=== PATIENT | female | born 1975 | race Caucasian/White ===

== ENCOUNTER 2020-07-07 20:51 | Emergency (ER) | payer MEDICARE, MEDICAID, SELFPAY ==
--- NOTE | ~2020-07-07 | XR_ITS ---
EXAMINATION: XR HAND WRIST RT CLINICAL INFORMATION: Fall on wrist, pain COMPARISON: None. TECHNIQUE: AP, lateral, oblique, and scaphoid views of the right hand and wrist FINDINGS: Diffuse soft tissue swelling. 4 mm negative ulnar variance. No fracture or dislocation seen. Otherwise normal mineralization and alignment. XR/XR hand wrist RT IMPRESSION: No acute osseous abnormality.
[2020-07-07 22:12] VITALS: BP 159/85; PULSE 89; RESP 17; TEMP 37; O2SAT 96; BMI 41.5
--- NOTE | 2020-07-07 23:05 | ED.EXTPRO ---
HPI - Extremity Problem General Chief complaint: Extremity Injury, Upper Stated complaint: WORK INJ Time Seen by Provider: 07/07/20 23:05 Source: patient Mode of arrival: ambulatory Limitations: no limitations History of Present Illness HPI Narrative: 44-year-old female with cough out of her work slipped outside was on the black eye is to protect her head use her right hand/wrist to ease up the fall, patient is complaining of right wrist pain. No head injury, no C-spine injury. Related Data Allergies Allergy/AdvReac Type Severity Reaction Status Date / Time aspirin Allergy Hives Verified 07/07/20 22:11 NSAIDS (Non-Steroidal Allergy Hives Verified 07/07/20 22:11 Anti-Inflamma hydrocodone AdvReac Nausea and Verified 07/07/20 22:11 Vomiting morphine AdvReac Nausea and Verified 07/07/20 22:11 Vomiting oxycodone AdvReac Nausea and Verified 07/07/20 22:11 Vomiting Review of Systems Review of Systems: All other systems are reviewed and are negative Constitutional: Reports as per HPI and Reports no additional constitutional complaints Eyes: Reports as per HPI and Reports no additional eye complaints Reports system reviewed and no additional complaints, except as documented Cardiovascular: Reports as per HPI and Reports no additional cardiovascular complaints Respiratory: Reports as per HPI and Reports no additional respiratory complaints Gastrointestinal: Reports as per HPI and Reports no additional gastrointestinal complaints Genitourinary: Reports no additional female genitourinary complaints Musculoskeletal: Reports no additional musculoskeletal complaints Skin/Breast: Reports system reviewed and no additional complaints, except as docu Psychiatric: Reports no additional psychiatric complaints Endocrine: Reports no additional endocrine complaints Hematologic/Lymphatic: Reports no additional hematologic/lymphatic complaints Allergic/Immunologic: Reports no additional allergic/immunologic complaints Reports system reviewed and no additional complaints, except as documented and Reports Abnormal speech present [facility] Past Medical History Medical History HTN (hypertension) Social History Social History Advance Directives: No Advance Directives Information Provided: Yes Physical Exam Vital Signs: Vital Signs: Last Vital Signs Temp 98.6 F 07/07/20 22:12 Pulse 89 07/07/20 22:12 Resp 17 07/07/20 22:12 BP 159/85 H 07/07/20 22:12 Pulse Ox 96 07/07/20 22:12 Body Mass Index 41.5 Vital signs have been reviewed as normal and appeared to be correct. Blood pressure in the high range. Heart rate normal. Respiration rate normal. Temperature normal. Oxygen saturation normal. Appearance: Alert. Oriented X3. No acute distress. Head: Normal external exam. Normocephalic. Atraumatic. No Martinez signs noted. No raccoon eyes noted Eyes: PERRLA. EOMI. Conjunctiva and sclera normal. Eyelids normal. ENT: TM's Normal. Pharynx normal. Uvula midline. Moist mucous membranes. No trismus noted. No drooling noted. No muffled voice noted. Neck: Normal inspection. Neck supple. FROM. No adenopathy. Thyroid Normal. No meningeal signs. No neck mass noted. CVS: Normal heart rate and rhythm. Heart sound normal. No murmurs noted. Pulses normal throughout. Respiratory: No respiratory distress. Painless inspiration. Breath sounds normal. No wheezes/rales/rhonchi noted. Chest nontender. No accessory muscle usage noted or decreased air movement noted. Abdomen: Soft and nontender. Bowel sounds normal in all 4 quadrants. No distention noted. No organomegaly noted. No visible injury noted. Back: No CVA tenderness. Full range of motion noted. Skin: Skin warm and dry. Normal skin color. Normal skin turgor. No rashes/lesions/lacerations noted. Extremities: Patient is right handed, tenderness over the snuffbox, no deformity, intact radial pulse, cap refill less than 2 seconds, sensation is intact to light touch in right hand. Neuro: Oriented X 3. No motor deficit. No sensory deficit. Reflexes normal. Course Course Course Narrative: 44 years old female who fell complain of right wrist pain clinical exam is consistent with scaphoid fracture, not suggested by the x-ray could be too early. Will apply thumb spica cast, NSAIDs, follow up with Ortho. MDM - Extremity (Nontraumatic) Imaging Data Right hand x-ray: Radiologist's impression: No acute osseous abnormality. Discharge Plan Discharge Clinical Impression: Scaphoid fracture, wrist, closed Qualifiers: Encounter type: initial encounter Scaphoid bone location: unspecified portion of scaphoid Fracture alignment: nondisplaced Laterality: right Qualified Code(s): S62.001A - Unspecified fracture of navicular [scaphoid] bone of right wrist, initial encounter for closed fracture Patient Disposition: Home, Self-Care Instructions: Scaphoid Fracture (ED) Referrals: Issac Waldron MD [Physician] - 2 days
== END 2020-07-08 00:10 | disposition home or self-care (01) ==
PROVIDERS: Emergency Provider Emergency Medicine; PCP Nurse Practitioner Family
DX: S62.001A Unspecified fracture of navicular [scaphoid] bone of right wrist, initial encounter for closed fracture (principal); W00.0XXA Fall on same level due to ice and snow, initial encounter; Y93.9 Activity, unspecified; Y92.89 Other specified places as the place of occurrence of the external cause; Y99.0 Civilian activity done for income or pay
CPT/HCPCS: 29125; 73110; 73130; 99283; 99284

== ENCOUNTER → 2020-07-10 09:06 | Outpatient (BNVA) | payer MEDICARE, MEDICAID, SELFPAY | PROVIDERS: Visit Provider Orthopaedic Surgery | DX: M25.531 Pain in right wrist (principal) | CPT/HCPCS: 99202 ==

== ENCOUNTER 2020-07-24 08:35 | Outpatient (REF) | payer MEDICARE, MEDICAID, SELFPAY ==
--- NOTE | ~2020-07-24 | XR_ITS ---
EXAMINATION: XR WRIST, RIGHT CLINICAL INFORMATION: Pain in right wrist COMPARISON: 07/07/2020 TECHNIQUE: PA, lateral, oblique, and scaphoid views of the right wrist. FINDINGS: Soft tissues are diffusely prominent. 4 mm negative ulnar variance. No fracture or dislocation. Otherwise normal mineralization and alignment. XR/XR wrist RT min 3V IMPRESSION: No acute osseous abnormality. No significant change from prior study.
== END 2020-07-24 08:36 | disposition home or self-care (01) ==
LOC: HO.HOSX 08:35
PROVIDERS: Visit Provider Orthopaedic Surgery
DX: M25.531 Pain in right wrist (principal); S52.511A Displaced fracture of right radial styloid process, initial encounter for closed fracture; W18.30XA Fall on same level, unspecified, initial encounter; Y93.9 Activity, unspecified; Y92.59 Other trade areas as the place of occurrence of the external cause; Y99.0 Civilian activity done for income or pay; I10 Essential (primary) hypertension; F17.200 Nicotine dependence, unspecified, uncomplicated; Z88.6 Allergy status to analgesic agent; Z88.5 Allergy status to narcotic agent
CPT/HCPCS: 73110; 99212

== ENCOUNTER 2020-08-26 17:09 | Outpatient (REF) | payer OTHER, MEDICARE, MEDICAID, SELFPAY | END 2020-08-26 17:10 | disposition home or self-care (01) | LOC: HO.HOSX 17:09 | PROVIDERS: Visit Provider Orthopaedic Surgery | DX: Z13.89 Encounter for screening for other disorder (principal) ==

== ENCOUNTER 2020-12-11 08:23 | Outpatient (REF) | payer OTHER, MEDICARE, MEDICAID, SELFPAY | END 2020-12-11 08:24 | disposition home or self-care (01) | LOC: HO.HOSX 08:23 | PROVIDERS: Visit Provider Orthopaedic Surgery | DX: Z13.89 Encounter for screening for other disorder (principal) ==